=== PATIENT | male | born 1960 ===

== ENCOUNTER 2018-01-20 05:54 | Emergency (ER) | payer MEDICAID, OTHER ==
[2018-01-20 06:03] VITALS: O2SAT 98
[2018-01-20 06:17] VITALS: BP 137/91; PULSE 77; RESP 17; TEMP 98.4
--- NOTE | 2018-01-20 06:24 | C.PDOC ---
History Of Present Illness 57 year old male presents to the ER with a complaint of atraumatic right shoulder pain for the past 4 days that has progressively worsen. Patient states the pain worsens with movement. He took OTC motrin at home with no relief, is unsure of the dose. Denies weakness or numbness. Time Seen by Provider: 01/20/18 06:13 Chief Complaint (Nursing): Upper Extremity Problem/Injury History Per: Patient History/Exam Limitations: no limitations Onset/Duration Of Symptoms: Days Current Symptoms Are (Timing): Still Present Exacerbating Factor(s): Movement Recent travel outside of the [place]: No Past Medical History Reviewed: Historical Data, Nursing Documentation, Vital Signs Vital Signs: Last Vital Signs Temp 98.4 F 01/20/18 06:08 Pulse 77 01/20/18 06:08 Resp 17 01/20/18 06:08 BP 137/91 H 01/20/18 06:08 Pulse Ox 98 01/20/18 06:31 - Medical History PMH: HTN Family History: States: Unknown Family Hx - Social History Hx Alcohol Use: No Hx Substance Use: No - Immunization History Hx Tetanus Toxoid Vaccination: No Hx Influenza Vaccination: No Review Of Systems Musculoskeletal: Positive for: Shoulder Pain Neurological: Negative for: Weakness, Numbness Physical Exam - Physical Exam Appears: Non-toxic Skin: Normal Color, Warm, Dry Head: Atraumatic, Normacephalic Eye(s): bilateral: Normal Inspection Chest: Symmetrical, No Tenderness Cardiovascular: Rhythm Regular Respiratory: Normal Breath Sounds, No Rales, No Rhonchi, No Wheezing Extremity: Tenderness (on palpation of anterior lateral right shoulder), Capillary Refill (<2 seconds), No Deformity, No Swelling, Other (ROM of right shoulder limited due to pain) Pulses: Left Radial: Normal, Right Radial: Normal Neurological/Psych: Oriented x3, Normal Speech, Normal Motor, Normal Sensation ED Course And Treatment O2 Sat by Pulse Oximetry: 98 (Room air) Pulse Ox Interpretation: Normal - Other Rad Right shoulder x-ray X-Ray: Interpreted by Me, Viewed By Me Interpretation: No acute fractures or dislocation. Progress Note: Right shoulder x-ray ordered, results were negative. Toradol IM and valium administered. Patient reports improvement of pain, he is resting comfortably in the ER in no acute distress, vitals are stable. Pt was placed in a sling for support. Pt will be discharged home with instructions to follow up with PMD. Reevaluation Time: 06:54 Reassessment Condition: Improved Disposition Counseled Patient/Family Regarding: Diagnosis, Need For Followup, Rx Given - Disposition Referrals: [facility] [Outside] Disposition: HOME/ ROUTINE Disposition Time: 06:56 Condition: STABLE Additional Instructions: Take medications as directed Follow up in clinic or with your doctor Exercise shoulder as instructed when medications give you some relief Return to ER if worse Prescriptions: Cyclobenzaprine [Cyclobenzaprine HCl] 10 mg PO BID #10 tab Naproxen [Naprosyn] 1 tab PO BID PRN #20 tab PRN Reason: Pain Instructions: Frozen Shoulder (DC) Forms: [employer] (Czech) Print Language: IRANIAN - Clinical Impression Clinical Impression: Right shoulder pain - PA / MANAGER STORE / Resident Statement MD/DO has reviewed & agrees with the documentation as recorded. - Scribe Statement The provider has reviewed the documentation as recorded by the Scribyfn Sinha All medical record entries made by the Farhana were at my direction and personally dictated by me. I have reviewed the chart and agree that the record accurately reflects my personal performance of the history, physical exam, medical decision making, and the department course for this patient. I have also personally directed, reviewed, and agree with the discharge instructions and disposition.
--- NOTE | 2018-01-20 08:54 | RAD ---
PROCEDURE: Radiographs of the Right Shoulder HISTORY: pain, no trauma, decr ROM COMPARISON: No prior. FINDINGS: BONES: Normal. No fracture. JOINTS: Normal. Glenohumeral and acromioclavicular joints preserved. No osteoarthritis. SOFT TISSUES: Normal. OTHER FINDINGS: None. IMPRESSION: Normal radiographs of the right shoulder.
== END 2018-01-20 07:06 | disposition home or self-care (01) ==
LOC: C.ER 05:54
DX: M25.511 Pain in right shoulder (principal)
CPT/HCPCS: 73030; 96372; 99283; J1885